=== PATIENT | male | born 1965 | race Caucasian/White ===

== ENCOUNTER 2020-03-08 08:06 | Outpatient (CLI) | payer OTHER ==
[2020-03-08 09:02] LABS: BASOPHILS # (AUTO) 0.04 x10^3/uL (0-0.1); BASOPHILS % (AUTO) 1 % (0-1); EOSINOPHILS # (AUTO) 0.47 x10^3/uL (0-0.4); EOSINOPHILS % (AUTO) 7 % (1-7); LYMPHOCYTES % (AUTO) 34 % (22-44); MD NO; MEAN CORPUSCULAR HEMOGLOBIN 31.7 pg (27.5-34.5); MEAN CORPUSCULAR HGB CONC 33.3 g/dL (33.2-36.2); MEAN CORPUSCULAR VOLUME 95.3 fL (81-97); MEAN PLATELET VOLUME 7.9 fL (7.4-10.4); MONOCYTES # (AUTO) 0.54 x10^3/uL (0.2-0.8); MONOCYTES % (AUTO) 8 % (2-9); NEUTROPHILS # (AUTO) 3.32 x10^3/uL (1.8-6.8); NEUTROPHILS % (AUTO) 51 % (42-75); PLATELET COUNT 193 x10^3/uL (130-400); RED BLOOD COUNT 4.93 x10^6/uL (4.38-5.82); RED CELL DISTRIBUTION WIDTH 14.1 % (9.4-14.8)
[2020-03-08 09:12] LABS: ALANINE AMINOTRANSFERASE 32 U/L (12-78); ALBUMIN 3.7 g/dL (3.4-5.0); ANION GAP 7 mmol/L (5-15); CALCIUM 8.2 mg/dL (8.5-10.1); CHLORIDE 109 mmol/L (98-107)
[2020-03-08 09:15] LABS: ALKALINE PHOSPHATASE 60 U/L (45-117); BILIRUBIN,TOTAL 1.9 mg/dL (0.2-1.0); CREATININE 0.75 mg/dL (0.7-1.3); TOTAL PROTEIN 6.9 g/dL (6.4-8.2)
[2020-03-08] MEDS ORDERED: ASCO10004 PO (11:43)
[2020-03-08] MEDS ORDERED: METF500T17 PO (11:43)
[2020-03-08] MEDS ORDERED: NAPR220C2 PO (11:43)
[2020-03-08] MEDS ORDERED: IBUP-1623 PO (11:43)
[2020-03-08] MEDS ORDERED: BUPR150T13 PO (11:43)
[2020-03-08] MEDS ORDERED: CETI-158 PO (11:43)
[2020-03-08] MEDS ORDERED: LISI-170 PO (11:43)
[2020-03-08] MEDS ORDERED: ASPI-496 PO (11:43)
[2020-03-08] MEDS ORDERED: EMPA25TA PO (11:43)
== END 2020-03-08 23:59 | disposition home or self-care (01) ==
LOC: STAR 08:06
PROVIDERS: ATTEND Urology
DX: Z01.818 Encounter for other preprocedural examination (principal); C61 Malignant neoplasm of prostate; I25.2 Old myocardial infarction; R94.31 Abnormal electrocardiogram [ECG] [EKG]
CPT/HCPCS: 36415; 80053; 85025; 93005

== ENCOUNTER 2020-03-12 10:06 | Inpatient (IN) | payer OTHER ==
[~2020-03-12] VITALS: Ht 177.8 cm; Wt 98.8 kg
[~2020-03-12 10:06] MED LIST: ASCO10004 PO; ASPI-496 PO; BUPR150T13 PO; CETI-158 PO; DEXAMETHASONE 4 MG/ML, 1ML ONE; EMPA25TA PO; FENTANYL PF 250 MCG/5ML ONE; GLYCOPYRROLATE 0.2MG/1ML, 5ML ONE; IBUP-1623 PO; LIDOCAINE-MPF 2% ,5ML ONE; LISI-170 PO; METF500T17 PO; MIDAZOLAM 1 MG/ML, 2ML ONE; NAPR220C2 PO; PROPOFOL 10 MG/ML, 20ML ONE; ROCURONIUM 10MG/ML,5ML ONE
[2020-03-12] MEDS ORDERED: LACTATED RINGERS 1,000 ML IV SCH (10:44)
[2020-03-12 10:45] VITALS: BP 152/95
[2020-03-12] MEDS ORDERED: CHLORHEXIDINE 15 ML UDC ONE (10:49)
[2020-03-12] MEDS ORDERED: CHLORHEXIDINE 15 ML UDC MM ONE (11:00)
[2020-03-12] MEDS ORDERED: BUPIVACAINE/PF-EPI 0.25% 1:200K ONE (11:37)
[2020-03-12] MEDS ORDERED: OPIUM/BELLADONNA SUPP.RECT 16.2-60 MG ONE (11:37)
[2020-03-12] MEDS ORDERED: LABETALOL 5MG/ML, 20ML ONE (12:05)
[2020-03-12] MEDS ORDERED: OXYcodone 5 MG/5 ML ORAL.SOL UDC PO PRN (13:00)
[2020-03-12] MEDS ORDERED: MIDAZOLAM 1 MG/ML, 2ML IV PRN (13:00)
[2020-03-12] MEDS ORDERED: METOCLOPRAMIDE 5 MG/ML, 2ML IVPush PRN (13:00)
[2020-03-12] MEDS ORDERED: hydrALAzine 20 MG/ML, 1ML IV PRN (13:00)
[2020-03-12] MEDS ORDERED: KETOROLAC 30 MG/1 ML IVPush PRN (13:00)
[2020-03-12] MEDS ORDERED: DIPHENHYDRAMINE 50 MG/ML, 1ML IVPush PRN (13:00)
[2020-03-12] MEDS ORDERED: EPHEDRINE 50 MG/ML, 1ML IM PRN (13:00)
[2020-03-12] MEDS ORDERED: METHOCARBAMOL 1,000 MG in DEXTROSE 5% 100 ML IV PRN (13:00)
[2020-03-12] MEDS ORDERED: EPHEDRINE 50 MG/ML, 1ML IVPush PRN (13:00)
[2020-03-12] MEDS ORDERED: DIAZEPAM 5 MG/ML, 2ML IVPush PRN (13:00)
[2020-03-12] MEDS ORDERED: ACETAMINOPHEN 325 MG TABLET PO PRN (13:00)
[2020-03-12] MEDS ORDERED: morphine SULFATE 10 MG/ML, 1ML IVPush PRN (13:00)
[2020-03-12] MEDS ORDERED: HYDROcodone/APAP 7.5-325MG/15ML UDC PO PRN (13:00)
[2020-03-12] MEDS ORDERED: ONDANSETRON 2MG/ML, 2ML IVPush PRN (13:00)
[2020-03-12] MEDS ORDERED: ALBUTEROL/IPRATROPIUM 2.5MG/0.5MG, 3 ML NPPB PRN (13:00)
[2020-03-12] MEDS ORDERED: MEPERIDINE/PF 25MG/0.5ML IVPush PRN (13:00)
[2020-03-12] MEDS ORDERED: LABETALOL 5MG/ML, 20ML IV PRN (13:00)
[2020-03-12] MEDS ORDERED: LORazepam 2 MG/ML, 1ML IVPush PRN (13:00)
[2020-03-12] MEDS ORDERED: HALOPERIDOL 5 MG/ML IV PRN (13:00)
[2020-03-12] MEDS ORDERED: FENTANYL PF 100 MCG/2ML ONE (16:39)
[2020-03-12] MEDS ORDERED: OXYcodone 5 MG/5 ML ORAL.SOL UDC ONE (16:39)
[2020-03-12] MEDS ORDERED: ACETAMINOPHEN 650 MG/20.3 ML UDC ONE (16:39)
[2020-03-12] MEDS: FENTANYL PF 100 MCG/2ML IV PRN ×2 (16:46→16:52)
[2020-03-12] MEDS ORDERED: HYDROmorphone 1 MG/ML, 1ML INJ ONE (17:11)
[2020-03-12] MEDS: HYDROmorphone 1 MG/ML, 1ML INJ IVPush PRN ×2 (17:13→17:18)
[2020-03-12] MEDS ORDERED: OPIUM/BELLADONNA SUPP.RECT 16.2-60 MG PR PRN (18:30)
[2020-03-12] MEDS ORDERED: MORPHINE SULFATE 4 MG/ML, 1ML IV PRN (18:30)
[2020-03-12] MEDS ORDERED: TEMAZEPAM 15 MG CAPSULE PO PRN (18:30)
[2020-03-12] MEDS ORDERED: ONDANSETRON 2MG/ML, 2ML IV PRN (18:30)
[2020-03-12 19:49] VITALS: BP_SYST 110; BP_SYST 116; BP_DIAS 71; BP_DIAS 75
[2020-03-12] MEDS: ACETAMINOPHEN 500 MG TABLET PO SCH (20:23)
[2020-03-12] MEDS: BUPROPION SR 150 MG TABLET PO SCH (20:24)
[2020-03-12] MEDS: OXYcodone IR 5MG TABLET PO PRN (20:24)
[2020-03-12] MEDS: FAMOTIDINE 20 MG/2 ML IVPush SCH (20:24)
[2020-03-12] MEDS: POTASSIUM CHLORIDE 20 MEQ in SODIUM CHLORIDE 0.45% 1,000 ML IV SCH (20:25)
[2020-03-13 00:22] VITALS: BP 119/74
[2020-03-13] MEDS: OXYcodone IR 5MG TABLET PO PRN ×4 (00:56→15:02)
[2020-03-13 04:24] VITALS: BP 102/66
[2020-03-13] MEDS: POTASSIUM CHLORIDE 20 MEQ in SODIUM CHLORIDE 0.45% 1,000 ML IV SCH ×2 (05:01→12:10)
[2020-03-13] MEDS: ACETAMINOPHEN 500 MG TABLET PO SCH ×2 (05:01→12:10)
[2020-03-13 05:42] LABS: ANION GAP 9 mmol/L (5-15); CHLORIDE 108 mmol/L (98-107); CREATININE 0.64 mg/dL (0.7-1.3)
[2020-03-13 08:00] VITALS: BP 113/70
[2020-03-13] MEDS ORDERED: ENOXAPARIN 40 MG/0.4 ML SQ SCH (08:00)
[2020-03-13] MEDS ORDERED: metFORMIN 500 MG TABLET PO SCH (08:00)
[2020-03-13] MEDS ORDERED: LISINOPRIL 10 MG TABLET PO SCH (09:00)
[2020-03-13] MEDS ORDERED: EMPAGLIFLOZIN 25 MG PO SCH (09:00)
[2020-03-13] MEDS ORDERED: CETIRIZINE 10 MG TABLET PO SCH (09:00)
[2020-03-13] MEDS: BUPROPION SR 150 MG TABLET PO SCH (09:20)
[2020-03-13] MEDS: FAMOTIDINE 20 MG/2 ML IVPush SCH (09:20)
[2020-03-13 14:00] VITALS: BP 109/73
[2020-03-13] MEDS ORDERED: HYDR-3246 PO (15:13)
== END 2020-03-13 15:50 | disposition home or self-care (01) | DRG 708 ==
LOC: OUT 10:06 → 4NE 18:08 → OUT 18:26 → 4NE 18:27 → DCLOUNGE 03-13 15:36
PROVIDERS: ADMIT Urology; ATTEND Urology
PROC: 0VT04ZZ Resection of Prostate, Percutaneous Endoscopic Approach (ICD-10-PCS; 2020-03-12)
PROC: 07BC4ZZ Excision of Pelvis Lymphatic, Percutaneous Endoscopic Approach (ICD-10-PCS; 2020-03-12)
PROC: 8E0W4CZ Robotic Assisted Procedure of Trunk Region, Percutaneous Endoscopic Approach (ICD-10-PCS; principal; 2020-03-12 12:00)
DX: C61 Malignant neoplasm of prostate (principal); D49.4 Neoplasm of unspecified behavior of bladder; K66.0 Peritoneal adhesions (postprocedural) (postinfection)
CPT/HCPCS: 36415; J3490; 80048; 82962; 85014; 85018; 86850; 86900; 87635; 88305; 88309; C1729; G0378; J1100; J1170; J1650; J2250; J2704; J3010; J3480; C1760; J2800; J7120

== ENCOUNTER 2020-03-19 13:12 | Outpatient (CLI) | payer OTHER ==
[~2020-03-19 13:12] MED LIST changes: -DEXAMETHASONE 4 MG/ML, 1ML ONE; -FENTANYL PF 250 MCG/5ML ONE; -GLYCOPYRROLATE 0.2MG/1ML, 5ML ONE; +HYDR-3246 PO; -LIDOCAINE-MPF 2% ,5ML ONE; -MIDAZOLAM 1 MG/ML, 2ML ONE; -PROPOFOL 10 MG/ML, 20ML ONE; -ROCURONIUM 10MG/ML,5ML ONE
[2020-03-19] MEDS ORDERED: CYSTO CONRAY II 250 ML VIAL UR ONE (14:56)
== END 2020-03-19 23:59 | disposition home or self-care (01) ==
LOC: RAD 13:12
PROVIDERS: ATTEND Urology
DX: C61 Malignant neoplasm of prostate (principal); N32.89 Other specified disorders of bladder; E11.9 Type 2 diabetes mellitus without complications; Z88.8 Allergy status to other drugs, medicaments and biological substances; Z79.899 Other long term (current) drug therapy; Z72.89 Other problems related to lifestyle; Z82.49 Family history of ischemic heart disease and other diseases of the circulatory system; Z83.3 Family history of diabetes mellitus
CPT/HCPCS: 51600; 74430; Q9958